=== PATIENT | female | born 1975 ===

== ENCOUNTER 2019-01-11 07:34 | Day surgery (SDC) | payer SELFPAY ==
[~2019-01-11] VITALS: Ht 157.5 cm; Wt 79.4 kg
[2019-01-11] VITALS (12 sets, daily range): BP systolic 105–122; BP diastolic 44–75
[~2019-01-11 07:34] MED LIST: CEPH500C PO; CITA40TA19 PO; FERR-57 PO; GBPN100C PO; PREN1TAB39 PO
--- OUTSIDE RECORDS SUMMARY | 2019-01-11 07:38 | XMS REPORT ---
Author Author Migration, Doctor Organization [facility] Address Unknown Phone Unavailable Care Team Providers Care Secretary Office Clerk Name Role Phone Migration, Doctor Unavailable Unavailable PROBLEMS Type Condition ICD9-CM Code AGU93-RA Code Onset Dates Condition Status SNOMED Code Problem Suicidal behavior without attempted self-injury R46.89 Active 727453177 Problem Severe episode of recurrent major depressive disorder, without psychotic features F33.2 Active 66238065 Problem Other general counseling and advice for contraceptive management V25.09 Active 138882556 Problem Depressive disorder, not elsewhere classified 311 Active 66060925 Problem Generalized anxiety disorder F41.1 Active 88448642 Problem Major depressive disorder, recurrent, moderate F33.1 Active 23065681 ALLERGIES No Information ENCOUNTERS Encounter Location Date Diagnosis [place] [id number] [place] [address] Mar, Severe episode of recurrent major depressive disorder, without psychotic features F33.2 [place] [id number] [place] [address] Feb, Severe episode of recurrent major depressive disorder, without psychotic features F33.2 [facility] [id number] [place] [address] Feb, [place] [id number] [place] [address] Feb, [facility] [id number] [place] [address] Feb, Major depressive disorder, recurrent, moderate F33.1 and Generalized anxiety disorder F41.1 [facility] [id number] [place] [address] Feb, Severe episode of recurrent major depressive disorder, without psychotic features F33.2 [place] [id number] [place] [address] Feb, Major depressive disorder, recurrent, moderate F33.1 and Generalized anxiety disorder F41.1 [facility] [id number] [place] [address] 14 Oct, 2014 [facility] [id number] [place] [address] 13 Oct, 2014 [facility] [id number] [place] [address] 06 Jun, 2012 [facility] [id number] [place] [address] Jun, [facility] [id number] [place] [address] May, [facility] [id number] [place] [address] May, [facility] [id number] [place] [address] May, [facility] [id number] [place] [address] May, [facility] [id number] [place] [address] May, [facility] [id number] [place] [address] May, [facility] [id number] [place] [address] May, [facility] [address] [place] [address] Apr, [facility] [id number] [place] [address] 17 Apr, 2011 [facility] [id number] [place] [address] 13 Apr, 2011 [facility] [id number] [place] [address] Apr, [facility] [id number] [address] 12 Apr, 2011 [facility] [address] [address] Mar, [facility] [address] [address] 17 Feb, 2011 [facility] [address] [address] Feb, [facility] [address] [address] Jan, [facility] [address] [address] November, [facility] [address] [address] Oct, [facility] [address] [address] Sep, [facility] [id number] [address] Aug, [facility] [id number] [address] 14 Jul, 2009 IMMUNIZATIONS No Known Immunizations SOCIAL HISTORY Never Assessed REASON FOR VISIT [facility] [place]AN OF CARE VITAL SIGNS MEDICATIONS No Known Medications RESULTS No Results PROCEDURES No Known procedures INSTRUCTIONS MEDICATIONS ADMINISTERED No Known Medications MEDICAL (GENERAL) HISTORY Type Description Date Surgical History section x3
--- OUTSIDE RECORDS SUMMARY | 2019-01-11 07:39 | XMS REPORT ---
Author Author VANESSA SÁNCHEZ Organization [facility] Address [address] [place] [address] Care Team Providers Care Demurrage Man Name Role Phone VANESSA SÁNCHEZ Unavailable PROBLEMS Type Condition ICD9-CM Code TUK21-SE Code Onset Dates Condition Status SNOMED Code Problem Severe episode of recurrent major depressive disorder, without psychotic features F33.2 Active 76524543 Problem Suicidal behavior without attempted self-injury R46.89 Active 994581120 Problem Depressive disorder, not elsewhere classified 311 Active 43844884 Problem Other general counseling and advice for contraceptive management V25.09 Active 415458261 Problem Major depressive disorder, recurrent, moderate F33.1 Active 81902121 Problem Generalized anxiety disorder F41.1 Active 64202483 ALLERGIES No Information ENCOUNTERS Encounter Location Date Diagnosis [place] [id number] [place] [address] Apr, [facility] [id number] [place] [address] Mar, Severe episode of recurrent major depressive disorder, without psychotic features F33.2 [facility] [address] [place] [address] Feb, Severe episode of recurrent major depressive disorder, without psychotic features F33.2 [facility] [address] [place] [address] Feb, [facility] [id number] [place] [address] Feb, [facility] [id number] [place] [address] Feb, Major depressive disorder, recurrent, moderate F33.1 and Generalized anxiety disorder F41.1 [facility] [id number] [place] [address] Feb, Severe episode of recurrent major depressive disorder, without psychotic features F33.2 [facility] [id number] [place] [address] Feb, Major depressive disorder, recurrent, moderate F33.1 and Generalized anxiety disorder F41.1 [facility] [id number] [place] [address] 14 Oct, 2014 [facility] [id number] [place] [address] Oct, [facility] [id number] [place] [address] Jun, [facility] [id number] [place] [address] Jun, [facility] [id number] [place] [address] May, [facility] [id number] [place] [address] May, [facility] [id number] [place] [address] May, [facility] [id number] [place] [address] May, [facility] [id number] [place] [address] May, [facility] [address] [place] [address] May, [facility] [id number] [place] [address] May, [facility] [id number] [place] [address] Apr, [facility] [id number] [place] [address] Apr, [facility] [id number] [address] 13 Apr, 2011 [facility] [address] [facility] [id number] [address] Apr, [facility] [address] [facility] [id number], [place] [address] Apr, [facility] [address] [facility] [id number], [place] [address] Mar, [facility] [address] [facility] [id number] [address] Feb, [facility] [address], [place] [address] Feb, [facility] [address], [place] [address] Jan, [facility] [address], [place] [address] November, [facility] [address], [place] [address] Oct, [facility] [id number] [address] Sep, [facility] [id number] [address] Aug, [facility] [id number] [address] Jul, IMMUNIZATIONS No Known Immunizations SOCIAL HISTORY Never Assessed REASON FOR VISIT crisis PLAN OF CARE Activity Details Follow Up 2 - 3 Days Reason: VITAL SIGNS MEDICATIONS Unknown Medications RESULTS No Results PROCEDURES Procedure Date Ordered Result Body Site Psych diagnostic evaluation, new patient Feb 16, 2018 INSTRUCTIONS MEDICATIONS ADMINISTERED No Known Medications MEDICAL (GENERAL) HISTORY Type Description Date Surgical History section x3
--- OUTSIDE RECORDS SUMMARY | 2019-01-11 07:39 | XMS REPORT ---
Author Author BECKI DANIEL Organization [facility] Address [address] [place] [address] Care Team Providers Care Paper Cone Machine Operator Name Role Phone KATHRYNDANIEL AGUIRRE Unavailable PROBLEMS Type Condition ICD9-CM Code ABG02-XO Code Onset Dates Condition Status SNOMED Code Problem Severe episode of recurrent major depressive disorder, without psychotic features F33.2 Active 33671362 Problem Suicidal behavior without attempted self-injury R46.89 Active 167024714 Problem Depressive disorder, not elsewhere classified 311 Active 27675753 Problem Other general counseling and advice for contraceptive management V25.09 Active 572546902 Problem Major depressive disorder, recurrent, moderate F33.1 Active 87943235 Problem Generalized anxiety disorder F41.1 Active 35323244 ALLERGIES No Information ENCOUNTERS Encounter Location Date Diagnosis [facility] [id number] [place] [address] Apr, [facility] [id number] [place] [address] Mar, Severe episode of recurrent major depressive disorder, without psychotic features F33.2 [facility] [id number] [place] [address] Feb, Severe episode of recurrent major depressive disorder, without psychotic features F33.2 [facility] [id number] [place] [address] Feb, [facility] [id number] [place] [address] Feb, [facility] [id number] [place] [address] Feb, Major depressive disorder, recurrent, moderate F33.1 and Generalized anxiety disorder F41.1 [facility] [address] [place] [address] Feb, Severe episode of recurrent major depressive disorder, without psychotic features F33.2 [facility] [id number] [place] [address] Feb, Major depressive disorder, recurrent, moderate F33.1 and Generalized anxiety disorder F41.1 [facility] [id number] [place] [address] 14 Oct, 2014 [facility] [id number] [place] [address] Oct, [facility] [id number] [place] [address] Jun, [facility] [id number] [place] [address] Jun, [facility] [id number] [place] [address] May, [facility] [id number] [place] [address] May, [facility] [id number] [place] [address] May, [facility] [address] [address] May, [facility] [id number] [place] [address] May, [facility] [address] [address] May, [facility] [id number] [place] [address] May, [facility] [id number] [address] Apr, [facility] [id number] [place] [address] Apr, [facility] [address] [facility] [id number] [address] Apr, [facility] [address] [facility] [id number] [place] [address] Apr, [facility] [address] [facility] [id number] [place] [address] Apr, [facility] [address] [facility] [id number] [place] [address] Mar, [facility] [address] [id number] [place] [address] Feb, [facility] [address] [facility] [id number] [place] [address] Feb, [facility] [address] [id number] [address] Jan, [facility] [address] [id number] [address] November, [facility] [address] [facility] [id number] [place] [address] Oct, [facility] [address] [id number] [address] Sep, [facility] [address] [address] Aug, [facility] [address] [id number] [address] Jul, IMMUNIZATIONS No Known Immunizations SOCIAL HISTORY Never Assessed REASON FOR VISIT trazodone refill PLAN OF CARE VITAL SIGNS MEDICATIONS Medication Instructions Dosage Frequency Start Date End Date Duration Status Trazodone HCl 50 MG Orally Once a day 1 tablet at bedtime as needed 24h Feb, 14 days Active RESULTS No Results PROCEDURES No Known procedures INSTRUCTIONS MEDICATIONS ADMINISTERED No Known Medications MEDICAL (GENERAL) HISTORY Type Description Date Surgical History section x3
--- OUTSIDE RECORDS SUMMARY | 2019-01-11 07:39 | XMS REPORT ---
Author Author BECKI DANIEL Organization [facility] Address [address] [place] [address] Care Team Providers Care Infantry Officer Name Role Phone KATHRYNDANIEL AGUIRRE Unavailable PROBLEMS Type Condition ICD9-CM Code YTV70-ZU Code Onset Dates Condition Status SNOMED Code Problem Severe episode of recurrent major depressive disorder, without psychotic features F33.2 Active 17716678 Problem Suicidal behavior without attempted self-injury R46.89 Active 795923030 Problem Depressive disorder, not elsewhere classified 311 Active 35210639 Problem Other general counseling and advice for contraceptive management V25.09 Active 677448456 Problem Major depressive disorder, recurrent, moderate F33.1 Active 98944082 Problem Generalized anxiety disorder F41.1 Active 59175942 ALLERGIES No Information ENCOUNTERS Encounter Location Date Diagnosis [facility] [id number] [place] [address] Apr, [facility] [id number] [place] [address] Mar, Severe episode of recurrent major depressive disorder, without psychotic features F33.2 [facility] [id number] [place] [address] Feb, Severe episode of recurrent major depressive disorder, without psychotic features F33.2 [facility] [id number] [place] [address] Feb, [facility] [id number] [place] [address] Feb, [facility] [id number] [place] [address] Feb, Major depressive disorder, recurrent, moderate F33.1 and Generalized anxiety disorder F41.1 [facility] [id number] [address] Feb, Severe episode of recurrent major depressive disorder, without psychotic features F33.2 [facility] [id number] [place] [address] Feb, Major depressive disorder, recurrent, moderate F33.1 and Generalized anxiety disorder F41.1 [facility] [id number] [place] [address] 14 Oct, 2014 [facility] [id number] [place] [address] Oct, [facility] [id number] [place] [address] Jun, [facility] [id number] [place] [address] Jun, [facility] [id number] [place] [address] May, [facility] [id number] [place] [address] May, [facility] [id number] [place] [address] May, [facility] [address] [address] May, [facility] [id number] [place] [address] May, [facility] [address] [address] May, [facility] [id number] [place] [address] May, [facility] [id number] [address] Apr, [facility] [id number] [place] [address] Apr, [facility] [address] [address] Apr, [facility] [id number], [place] [address] Apr, [facility] [address] [address] Apr, [facility] [id number] [place] [address] Mar, [facility] [address] [address] Feb, [facility] [id number] [place] [address] Feb, [facility] [address] [address] Jan, [facility] [id number] [place] [address] November, [facility] [address] [address] Oct, [facility] [id number], [place] [address] Sep, [facility] [address], [place] [address] Aug, [facility] [id number] [address] Jul, IMMUNIZATIONS No Known Immunizations SOCIAL HISTORY Never Assessed REASON FOR VISIT BH f/u, severe headaches, wasn't able to wake up, confused- AB/MA PLAN OF CARE Activity Details Follow Up 2 Months Reason: VITAL SIGNS Height 62 in 2018-03-21 Weight 168 lbs 2018-03-21 Heart Rate 51 bpm 2018-03-21 Respiratory Rate 20 2018-03-21 BMI 30.72 kg/m2 2018-03-21 Blood pressure systolic 130 mmHg 2018-03-21 Blood pressure diastolic 60 mmHg 2018-03-21 MEDICATIONS Medication Instructions Dosage Frequency Start Date End Date Duration Status Trazodone HCl 50 MG Orally Once a day 1 tablet at bedtime as needed 24h Feb, 30 days Active Celexa 40 MG Orally Once a day 1 tablet 24h Feb, 30 days Active RESULTS No Results PROCEDURES No Known procedures INSTRUCTIONS MEDICATIONS ADMINISTERED No Known Medications MEDICAL (GENERAL) HISTORY Type Description Date Surgical History section x3
--- OUTSIDE RECORDS SUMMARY | 2019-01-11 07:39 | XMS REPORT ---
Author Author BECKI DANIEL Organization [facility] Address [address] [place] [address] Care Team Providers Care It Systems Analyst Name Role Phone KATHRYNDANIEL AGUIRRE Unavailable PROBLEMS Type Condition ICD9-CM Code [id number] Code Onset Dates Condition Status SNOMED Code Problem Severe episode of recurrent major depressive disorder, without psychotic features F33.2 Active 31727484 Problem Suicidal behavior without attempted self-injury R46.89 Active 453589663 Problem Depressive disorder, not elsewhere classified 311 Active 97968825 Problem Other general counseling and advice for contraceptive management V25.09 Active 494378414 Problem Major depressive disorder, recurrent, moderate F33.1 Active 06398652 Problem Generalized anxiety disorder F41.1 Active 81086452 ALLERGIES No Known Allergies ENCOUNTERS Encounter Location Date Diagnosis [facility] [id number] [place] [address] Apr, [facility] [address] [address] Mar, Severe episode of recurrent major depressive disorder, without psychotic features F33.2 [facility] [id number] [place] [address] Feb, Severe episode of recurrent major depressive disorder, without psychotic features F33.2 [facility] [address] [place] [address] Feb, [facility] [id number] [place] [address] Feb, [facility] [id number] [place] [address] Feb, Major depressive disorder, recurrent, moderate F33.1 and Generalized anxiety disorder F41.1 [facility] [address] [place] [address] Feb, Severe episode of recurrent major depressive disorder, without psychotic features F33.2 [facility] [id number] [place] [address], [place] [address] Feb, Major depressive disorder, recurrent, moderate F33.1 and Generalized anxiety disorder F41.1 [facility] [id number] [place] [address] 14 Oct, 2014 [facility] [id number] [place] [address] Oct, [facility] [id number] [place] [address] Jun, [facility] [id number] [place] [address] Jun, [facility] [id number] [place] [address] May, [facility] [id number] [place] [address] May, [facility] [id number] [place] [address] May, [facility] [address] [place] [address] May, [facility] [id number] [place] [address] May, [facility] [id number] [address] May, [facility] [id number] [place] [address] May, [facility] [id number] [address] Apr, [facility] [address] [place] [address] Apr, [facility] [id number] [address] Apr, [facility] [id number] [address] Apr, [facility] [id number] [address] Apr, [facility] [id number] [address] Mar, [facility] [id number] [address] Feb, [facility] [id number] [address] Feb, [facility] [id number] [address] Jan, [facility] [id number] [address] November, [facility] [id number] [address] Oct, [facility] [id number] [address] Sep, [facility] [id number] [address] Aug, [facility] [id number] [address] Jul, IMMUNIZATIONS No Known Immunizations SOCIAL HISTORY Never Assessed REASON FOR VISIT f/u PLAN OF CARE Activity Details Follow Up 4 Weeks Reason: VITAL SIGNS Height 62 in 2018-02-21 Weight 166.6 lbs 2018-02-21 Heart Rate 72 bpm 2018-02-21 Respiratory Rate 20 2018-02-21 BMI 30.47 kg/m2 2018-02-21 Blood pressure systolic 98 mmHg 2018-02-21 Blood pressure diastolic 56 mmHg 2018-02-21 MEDICATIONS Medication Instructions Dosage Frequency Start Date End Date Duration Status Celexa 20 MG Orally Once a day 1 tablet 24h Feb, Active Trazodone HCl 50 MG Orally Once a day 1 tablet at bedtime as needed 24h Feb, 30 days Active RESULTS No Results PROCEDURES No Known procedures INSTRUCTIONS MEDICATIONS ADMINISTERED No Known Medications MEDICAL (GENERAL) HISTORY Type Description Date Surgical History section x3
--- OUTSIDE RECORDS SUMMARY | 2019-01-11 07:39 | XMS REPORT ---
Author Author BECKI DANIEL Organization [facility] Address [address] [place] [address] Care Team Providers Care Campaign Associate Name Role Phone KATHRYNDANIEL AGUIRRE Unavailable PROBLEMS Type Condition ICD9-CM Code PNC30-YH Code Onset Dates Condition Status SNOMED Code Problem Severe episode of recurrent major depressive disorder, without psychotic features F33.2 Active 56957592 Problem Suicidal behavior without attempted self-injury R46.89 Active 256847333 Problem Depressive disorder, not elsewhere classified 311 Active 08681630 Problem Other general counseling and advice for contraceptive management V25.09 Active 774755543 Problem Major depressive disorder, recurrent, moderate F33.1 Active 72364871 Problem Generalized anxiety disorder F41.1 Active 60292561 ALLERGIES No Information ENCOUNTERS Encounter Location Date Diagnosis [facility] [id number] [place] [address] Apr, [facility] [id number] [place] [address] Mar, Severe episode of recurrent major depressive disorder, without psychotic features F33.2 [facility] [id number] [place] [address] Feb, Severe episode of recurrent major depressive disorder, without psychotic features F33.2 [facility] [address] [place] [address] Feb, [facility] [id number] [place] [address] Feb, [facility] [id number] [place] [address] Feb, Major depressive disorder, recurrent, moderate F33.1 and Generalized anxiety disorder F41.1 [facility] [address] [place] [address] Feb, Severe episode of recurrent major depressive disorder, without psychotic features F33.2 [facility] [id number] [place] [address] Feb, Major depressive disorder, recurrent, moderate F33.1 and Generalized anxiety disorder F41.1 [facility] [id number] [place] [address] 14 Oct, 2014 [facility] [id number] [place] [address] Oct, [facility] [id number] [place] [address] Jun, [facility] [id number] [place] [address] Jun, [facility] [id number] [place] [address] May, [facility] [id number] [place] [address] May, [facility] [id number] [place] [address] May, [facility] [address] [address] May, [facility] [id number] [place] [address] May, [facility] [address] [address] May, [facility] [id number] [place] [address] May, [facility] [id number] [address] Apr, [facility] [id number] [place] [address] Apr, [facility] [address] [id number] [address] Apr, [facility] [address] [facility] [id number] [address] Apr, [facility] [address] [facility] [id number] [place] [address] Apr, [facility] [address] [facility] [id number] [place] [address] Mar, [facility] [address] [id number] [address] Feb, [facility] [address] [facility] [id number] [address] Feb, [facility] [address] [facility] [id number] [place] [address] Jan, [facility] [address] [facility] [id number] [place] [address] November, [facility] [address] [facility] [id number] [place] [address] Oct, [facility] [address] [facility] [id number] [place] [address] Sep, [facility] [id number] [address] Aug, [facility] [id number] [address] Jul, IMMUNIZATIONS No Known Immunizations SOCIAL HISTORY Never Assessed REASON FOR VISIT celexa refill PLAN OF CARE VITAL SIGNS MEDICATIONS Medication Instructions Dosage Frequency Start Date End Date Duration Status Celexa 20 MG Orally Once a day 1 tablet 24h Feb, 30 days Active RESULTS No Results PROCEDURES No Known procedures INSTRUCTIONS MEDICATIONS ADMINISTERED No Known Medications MEDICAL (GENERAL) HISTORY Type Description Date Surgical History section x3
--- OUTSIDE RECORDS SUMMARY | 2019-01-11 07:39 | XMS REPORT ---
Author Author VANESSA SÁNCHEZ Organization [facility] Address [address] [place] [address] Care Team Providers Care Linux Unix Administrator Name Role Phone VANESSA SÁNCHEZ Unavailable PROBLEMS Type Condition ICD9-CM Code QKS84-ID Code Onset Dates Condition Status SNOMED Code Problem Severe episode of recurrent major depressive disorder, without psychotic features F33.2 Active 09955272 Problem Suicidal behavior without attempted self-injury R46.89 Active 642725670 Problem Depressive disorder, not elsewhere classified 311 Active 22499984 Problem Other general counseling and advice for contraceptive management V25.09 Active 666355070 Problem Major depressive disorder, recurrent, moderate F33.1 Active 86321129 Problem Generalized anxiety disorder F41.1 Active 96071122 ALLERGIES No Information ENCOUNTERS Encounter Location Date Diagnosis [id number] [place] [address] Apr, [facility] [id number] [place] [address] Mar, Severe episode of recurrent major depressive disorder, without psychotic features F33.2 [facility] [address] [place] [address] Feb, Severe episode of recurrent major depressive disorder, without psychotic features F33.2 [facility] [address] [place] [address] Feb, [facility] [id number] [place] [address] Feb, [facility] [id number] [place] [address] Feb, Major depressive disorder, recurrent, moderate F33.1 and Generalized anxiety disorder F41.1 [facility] [id number] [place] [address] Feb, Severe episode of recurrent major depressive disorder, without psychotic features F33.2 [facility] [id number] [place] [address] Feb, Major depressive disorder, recurrent, moderate F33.1 and Generalized anxiety disorder F41.1 [facility] [id number] [place] [address] 14 Oct, 2014 [facility] [id number] [place] [address] Oct, [facility] [id number] [place] [address] Jun, [facility] [id number] [place] [address] Jun, [facility] [id number] [place] [address] May, [facility] [id number] [place] [address] May, [facility] [id number] [place] [address] May, [facility] [id number] [place] [address] May, [facility] [id number] [place] [address] May, [facility] [id number] [place] [address] May, [facility] [id number] [place] [address] May, [facility] [id number] [place] [address] Apr, [facility] [id number] [place] [address] Apr, [facility] [address] [facility] [id number], [place] [address] 13 Apr, 2011 [facility] [address] [facility] [id number], [place] [address] Apr, [facility] [address] [facility] [id number], [place] [address] Apr, [facility] [address] [facility] [id number], [place] [address] Mar, [facility] [address] [facility] [id number], [place] [address] Feb, [facility] [address] [facility] [id number], [place] [address] Feb, [facility] [address] [address] Jan, [facility] [address] [address] November, [facility] [id number] [address] Oct, [facility] [id number] [address] Sep, [facility] [id number] [address] Aug, [facility] [id number] [address] Jul, IMMUNIZATIONS No Known Immunizations SOCIAL HISTORY Never Assessed REASON FOR VISIT f/u PLAN OF CARE Activity Details Follow Up Next available Reason: VITAL SIGNS MEDICATIONS Unknown Medications RESULTS No Results PROCEDURES Procedure Date Ordered Result Body Site Psychotherapy, patient &/family, 30 minutes, new patient Feb 17, 2018 INSTRUCTIONS MEDICATIONS ADMINISTERED No Known Medications MEDICAL (GENERAL) HISTORY Type Description Date Surgical History section x3
--- OUTSIDE RECORDS SUMMARY | 2019-01-11 07:39 | XMS REPORT | Continuity of Care Document ---
Author Organization Unknown Address Unknown Allergies There is no data. Medications There is no data. Problems Date Dx Coded Attending Type Code Diagnosis Diagnosed By 07/31/2008 626.6 Metrorrhagia 07/31/2008 V72.31 Pelvic Exam (internal) 07/31/2008 V74.5 Visit For: Screening Exam Bact/spirochetal Venereal Disease 07/31/2008 SCOUT CADE DO 626.6 Metrorrhagia 07/31/2008 SCOUT CADE DO V72.31 Pelvic Exam (internal) 07/31/2008 SCOUT CADE DO V74.5 Visit For: Screening Exam Bact/spirochetal Venereal Disease 08/11/2010 654.20 Previous 08/11/2010 V22.1 , Normal Other 08/11/2010 SCOUT C[facility] DO 654.20 Previous 08/11/2010 SCOUT CADE DO V22.1 , Normal Other 01/27/2011 530.81 GERD 01/27/2011 SCOUT CADE DO 530.81 GERD 02/15/2011 765.28 35-36 Completed Weeks Of Gestation 02/15/2011 SCOUT CADE DO 765.28 35-36 Completed Weeks Of Gestation 02/24/2011 791.5 Glycosuria 02/24/2011 SCOUT CADE DO 791.5 Glycosuria 03/29/2011 648.40 DEPRESSION 03/29/2011 V45.89 Other Postsurgical Status 03/29/2011 SCOUT CADE DO 648.40 DEPRESSION 03/29/2011 [facility] DO V45.89 Other Postsurgical Status 04/21/2011 V24.2 Visit For: Exam 04/21/2011 V25.01 Oral Contraceptives 04/21/2011 SCOUT CADE DO V24.2 Visit For: Exam 04/21/2011 SCOUT C[facility] DO V25.01 Oral Contraceptives 05/24/2012 311 DEPRESSIVE DISORDER NOS 05/24/2012 V25.09 CONTRACEPTIVE COUNSELING - GENERAL 05/24/2012 [facility]OUT C[facility] DO 311 DEPRESSIVE DISORDER NOS 05/24/2012 [facility] DO V25.09 CONTRACEPTIVE COUNSELING - GENERAL Procedures Code Description [place] [address] THERAPUTIC INJ SQ/IM 05/24/2012 J1055 DEPO-PROVERA INJ 150 MG 05/24/2012 62574 URINE TEST (IN-HOUSE) 05/24/2012 Results There is no data. Encounters ACCT No. Visit Date/Time Discharge Status Pt. Type Provider Facility Loc./Unit Complaint [id number] 05/24/2012 11:30:00 05/24/2012 23:59:59 CLS Outpatient [id number] 05/17/2011 09:50:00 05/17/2011 23:59:59 [place] [id number] 02/21/2018 18:20:00 02/21/2018 23:59:59 CLS Outpatient PORTER MERRILL APRN [facility]
--- OUTSIDE RECORDS SUMMARY | 2019-01-11 07:39 | XMS REPORT ---
Author Author Migration, Doctor Organization [facility] Address Unknown Phone Unavailable Care Team Providers Care Needle Punch Operator Name Role Phone Migration, Doctor Unavailable Unavailable PROBLEMS Type Condition ICD9-CM Code COK59-QG Code Onset Dates Condition Status SNOMED Code Problem Suicidal behavior without attempted self-injury R46.89 Active 301103757 Problem Severe episode of recurrent major depressive disorder, without psychotic features F33.2 Active 12290639 Problem Other general counseling and advice for contraceptive management V25.09 Active 155099258 Problem Depressive disorder, not elsewhere classified 311 Active 45300510 Problem Generalized anxiety disorder F41.1 Active 78494324 Problem Major depressive disorder, recurrent, moderate F33.1 Active [id number] ALLERGIES No Information ENCOUNTERS Encounter Location Date Diagnosis [place] [id number] [place] [phone] Mar, Severe episode of recurrent major depressive disorder, without psychotic features F33.2 [place] [id number] [place] [address] Feb, Severe episode of recurrent major depressive disorder, without psychotic features F33.2 [facility] [id number] [place] [address] Feb, [place] [id number] [place] [address] Feb, [facility] [id number] [place] [address] Feb, Major depressive disorder, recurrent, moderate F33.1 and Generalized anxiety disorder F41.1 [facility] [id number] [place] [address] Feb, Severe episode of recurrent major depressive disorder, without psychotic features F33.2 [place] [id number] [place] [address] Feb, Major depressive disorder, recurrent, moderate F33.1 and Generalized anxiety disorder F41.1 [facility] [id number] [place] [address] 14 Oct, 2014 [facility] [id number] [place] [phone] 13 Oct, 2014 [facility] [id number] [place] [phone] 06 Jun, 2012 [facility] [id number] [place] [phone] Jun, [facility] [id number] [place] [address] May, [facility] [id number] [place] [address] May, [facility] [id number] [place] [address] May, [facility] [id number] [place] [phone] May, [facility] [id number] [place] [address] May, [facility] [id number] [place] [phone] May, [facility] [id number] [place] [phone] May, [facility] [id number] [place] [address] Apr, [facility] [id number] [place] [address] 17 Apr, 2011 [facility] [id number] [place] [phone] 13 Apr, 2011 [facility] [id number] [place] [address] Apr, [facility] [id number] [address] 12 Apr, 2011 [facility] [id number] [address] Mar, [facility] [id number] [address] Feb, [facility] [id number] [address] Feb, [facility] [id number] [address] Jan, [facility] [id number] [address] November, [facility] [id number] [address] Oct, [facility] [id number] [address] Sep, [facility] [id number] [address] Aug, [facility] [id number] [address] Jul, IMMUNIZATIONS No Known Immunizations SOCIAL HISTORY Never Assessed REASON FOR VISIT EMR-[facility] [place] PLAN OF CARE VITAL SIGNS MEDICATIONS Medication Instructions Dosage Frequency Start Date End Date Duration Status Celexa 40 mg 1 tablet by Oral route 1 time per daySTART: half tab daily for 2 weeks, then as above. May, Active RESULTS No Results PROCEDURES No Known procedures INSTRUCTIONS MEDICATIONS ADMINISTERED No Known Medications MEDICAL (GENERAL) HISTORY Type Description Date Surgical History section x3
--- OUTSIDE RECORDS SUMMARY | 2019-01-11 07:39 | XMS REPORT ---
Author Author BECKI DANIEL Organization [facility] Address [address] [place] [address] Care Team Providers Care Pharmacist Manager Name Role Phone KATHRYNDANIEL AGUIRRE Unavailable PROBLEMS Type Condition ICD9-CM Code CNH49-VI Code Onset Dates Condition Status SNOMED Code Problem Severe episode of recurrent major depressive disorder, without psychotic features F33.2 Active 87050024 Problem Suicidal behavior without attempted self-injury R46.89 Active 704196378 Problem Depressive disorder, not elsewhere classified 311 Active 04356020 Problem Other general counseling and advice for contraceptive management V25.09 Active 170796934 Problem Major depressive disorder, recurrent, moderate F33.1 Active 10573529 Problem Generalized anxiety disorder F41.1 Active 71781177 ALLERGIES No Known Allergies ENCOUNTERS Encounter Location Date Diagnosis [facility] [id number] [place] [address] Apr, [facility] [address] [address] Mar, Severe episode of recurrent major depressive disorder, without psychotic features F33.2 [facility] [id number] [place] [address] Feb, Severe episode of recurrent major depressive disorder, without psychotic features F33.2 [facility] [address] [place] [address] Feb, [facility] [id number] [place] [address] Feb, [facility] [id number] [place] [address] Feb, Major depressive disorder, recurrent, moderate F33.1 and Generalized anxiety disorder F41.1 [facility] [address] [place] [address] Feb, Severe episode of recurrent major depressive disorder, without psychotic features F33.2 [facility] [id number] [place] [address], [place] [address] Feb, Major depressive disorder, recurrent, moderate F33.1 and Generalized anxiety disorder F41.1 [facility] [id number] [place] [address] 14 Oct, 2014 [facility] [id number] [place] [address] Oct, [facility] [id number] [place] [address] Jun, [facility] [id number] [place] [address] Jun, [facility] [id number] [place] [address] May, [facility] [id number] [place] [address] May, [facility] [id number] [place] [address] May, [facility] [id number] [place] [address] May, [facility] [id number] [place] [address] May, [facility] [address] [address] May, [facility] [id number] [place] [address] May, [facility] [id number] [address] Apr, [facility] [id number] [place] [address] Apr, [facility] [id number] [address] Apr, [facility] [address] [address] Apr, [facility] [id number] [address] Apr, [facility] [address] [place] [address] Mar, [facility] [address] [address] Feb, [facility] [address] [address] Feb, [facility] [address] [address] Jan, [facility] [id number] [place] [address] November, [facility] [id number] [address] Oct, [facility] [address] [address] Sep, [facility] [address] [address] Aug, [facility] [address] [address] Jul, IMMUNIZATIONS No Known Immunizations SOCIAL HISTORY Never Assessed REASON FOR VISIT BH intake - crisis----Stephanie PLAN OF CARE Activity Details Follow Up 2 Weeks Reason: VITAL SIGNS Height 62 in 2018-02-16 Weight 165 lbs 2018-02-16 Heart Rate 70 bpm 2018-02-16 Respiratory Rate 20 2018-02-16 BMI 30.18 kg/m2 2018-02-16 Blood pressure systolic 102 mmHg 2018-02-16 Blood pressure diastolic 60 mmHg 2018-02-16 MEDICATIONS Medication Instructions Dosage Frequency Start Date End Date Duration Status Trazodone HCl 50 MG Orally Once a day 1 tablet at bedtime as needed 24h Feb, 7 days Active Celexa 20 MG Orally Once a day 0.5 tablet daily for one week then full tab daily 24h Feb, 15 days Active RESULTS No Results PROCEDURES No Known procedures INSTRUCTIONS MEDICATIONS ADMINISTERED No Known Medications MEDICAL (GENERAL) HISTORY Type Description Date Surgical History section x3
[2019-01-11] MEDS ORDERED: KETOROLAC 30 MG/ML VIAL IVP STA (07:53)
[2019-01-11] MEDS ORDERED: NS IV 1000 ML 1,000 ML IV STA (07:53)
[2019-01-11] MEDS ORDERED: morphine INJ 10 MG/ML 1ML (SYR OR VIAL) IVP ONE (08:00)
[2019-01-11] MEDS ORDERED: ONDANSETRON 4 MG/2 ML (SDV) Z0FRAN IVP ONE ×2 (08:00→10:00)
[2019-01-11 08:08] LABS: BASOPHILS % (AUTO) 1 % (0-10); EOSINOPHILS # (AUTO) 0.2 10^3/uL (0.0-0.3); EOSINOPHILS % (AUTO) 3 % (0-10); HEMATOCRIT 29 % (35-52); HEMOGLOBIN 8.6 G/DL (11.5-16.0); LYMPHOCYTES # (AUTO) 1.4 X 10^3 (1.0-4.0); LYMPHOCYTES % (AUTO) 30 % (12-44); MEAN CORPUSCULAR HEMOGLOBIN 19 PG (25-34); MEAN CORPUSCULAR HGB CONC 30 G/DL (32-36); MEAN CORPUSCULAR VOLUME 65 FL (80-99); MEAN PLATELET VOLUME 11.3 FL (7.4-10.4); MONOCYTES # (AUTO) 0.3 X 10^3 (0.0-1.0); MONOCYTES % (AUTO) 7 % (0-12); NEUTROPHILS # (AUTO) 2.7 X 10^3 (1.8-7.8); NEUTROPHILS % (AUTO) 59 % (42-75); PLATELET COUNT 330 10^3/uL (130-400); RED CELL DISTRIBUTION WIDTH 18.1 % (10.0-14.5); WHITE BLOOD COUNT 4.6 10^3/uL (4.3-11.0)
--- NOTE | 2019-01-11 08:13 | ED Abdominal Pain ---
General Chief Complaint: Abdominal/GI Problems Stated Complaint: ABD/BACK PAIN;N/V Source of Information: Patient Exam Limitations: No Limitations (STEVE LU MEDICAL STUDENT) History of Present Illness Date Seen by Provider: Jan 11, 2019 Time Seen by Provider: 07:38 Initial Comments Pt presents to ED this morning c/o sharp abdominal pain and vomiting that started an hour ago. She notes that she has a two year history of bouts of pain just like this. She thinks this may be related to her history of gallstones. Pt rates her pain as a 10/10 and states that usually morphine helps relieve the pain. She also endorses right sided, low back pain that radiates into her leg, causing tingling and making it difficult to stand. Pt denies food trigger this morning and denies fever, diarrhea, constipation, or urinary urgency. Pt denies ever having surgical consultation regarding possible cholecystectomy. She sees [facility] for her healthcare. LMP was 01/01/19. Timing/Duration: 1 Hour Severity/Quality: Severe, Sharp Location: RUQ, RLQ Radiation: Groin Activities at Onset: None Modifying Factors: Improves With Analgesics (morphine) Associated Symptoms: Back Pain, Nausea/Vomiting (STEVE LU MEDICAL STUDENT) Radiation: Back Associated Symptoms: No Fever/Chills, No Shortness of Air (JEANCARLOS HERNANDEZ MD) Allergies and Home Medications Allergies Coded Allergies: No Known Drug Allergies (Verified , 03/27/07) Home Medications Citalopram Hydrobromide 40 Mg Tablet, 1 EACH PO DAILY, (Reported) Ferrous Sulfate 325 Mg Tablet, 325 MG PO DAILY Prescribed by: AMBROCIO GARCIA on 06/06/12 0245 Gabapentin 100 Mg Cap, 100 MG PO TID Prescribed by: AMBROCIO GARCIA on 06/06/12 0252 Vits W-Ca,Fe,Fa(<1MG) 1 Each Tablet, 1 EACH PO DAILY, (Reported) Patient Home Medication List Home Medication List Reviewed: Yes (STEVE LU STUDENT) Home Medication List Reviewed: Yes (JEANCARLOS HERNANDEZ MD) Review of Systems Review of Systems Constitutional: No chills, No fever EENTM: No Symptoms Reported Respiratory: No Symptoms Reported Cardiovascular: No Symptoms Reported Gastrointestinal: Abdominal Pain (right sided), Nausea, Vomiting Genitourinary: Denies Hematuria, Denies Pain, Denies Urgency Musculoskeletal: back pain (right sided low back) Skin: no symptoms reported Psychiatric/Neurological: Tingling (right leg) Endocrine: No Symptoms Reported Hematologic/Lymphatic: No Symptoms Reported (STEVE LU MEDICAL STUDENT) All Other Systems Reviewed Negative Unless Noted: Yes (JEANCARLOS HERNANDEZ MD) Past Vmmlogw-Ygrgbs-Cscuha Hx Past Med/Social Hx: Reviewed Nursing Past Med/Soc Hx (JEANCARLOS HERNANDEZ MD) Patient Social History Alcohol Use: Denies Use Recreational Drug Use: No Smoking Status: Never a Smoker (STEVE LU MEDICAL STUDENT) Past Medical History Surgeries: Yes Section (x3) Respiratory: No Cardiac: No Reproductive Disorders: No Genitourinary: No Gall Bladder Disease (gallstones) Musculoskeletal: No Endocrine: No Cancer: No Depression (STEVE LU STUDENT) Family Medical History Reviewed Nursing Family Hx (JEANCARLOS HERNANDEZ MD) No Pertinent Family Hx (JEANCARLOS HERNANDEZ MD) Physical Exam Vital Signs Vital Signs - First Documented 01/11/19 07:44 Temp 97.1 Pulse 69 Resp 16 B/P (MAP) 130/74 (92) Pulse Ox 100 O2 Delivery Room Air (JEANCARLOS HERNANDEZ MD) Vital Signs Capillary Refill : (STEVE LU MEDICAL STUDENT) Height/Weight/BMI Height: '" Weight: lbs. oz. kg; BMI Method:Stated General Appearance: severe distress HEENT: PERRL/EOMI, pharynx normal Neck: full range of motion, normal inspection Respiratory: lungs clear, normal breath sounds Cardiovascular: regular rate, rhythm, no murmur Peripheral Pulses: 2+ Radial Pulses (R), 2+ Radial Pulses (L) Gastrointestinal: normal bowel sounds, soft, tenderness (RUQ and RLQ) Extremities: non-tender, no pedal edema Back: no CVA tenderness, other (right SI joint tenderness) Neurologic/Psychiatric: no motor/sensory deficits, alert, oriented x 3 Skin: normal color, warm/dry (STEVE LU MEDICAL STUDENT) General Appearance: WD/WN, moderate distress Respiratory: lungs clear, normal breath sounds Cardiovascular: regular rate, rhythm, no murmur Gastrointestinal: soft, tenderness (RUQ and RLQ) Back: no CVA tenderness, no vertebral tenderness, other (right SI joint tenderness) (JEANCARLOS HERNANDEZ MD) Progress/Results/Core Measures Results/Orders Lab Results Laboratory Tests Test 01/11/19 07:52 01/11/19 09:42 Range/Units White Blood Count 4.6 4.3-11.0 10^3/uL Red Blood Count 4.46 4.35-5.85 10^6/uL Hemoglobin 8.6 L 11.5-16.0 G/DL Hematocrit 29 L 35-52 % Mean Corpuscular Volume 65 L 80-99 FL Mean Corpuscular Hemoglobin 19 L 25-34 PG Mean Corpuscular Hemoglobin Concent 30 L 32-36 G/DL Red Cell Distribution Width 18.1 H 10.0-14.5 % Platelet Count 330 130-400 10^3/uL Mean Platelet Volume 11.3 H 7.4-10.4 FL Neutrophils (%) (Auto) 59 42-75 % Lymphocytes (%) (Auto) 30 12-44 % Monocytes (%) (Auto) 7 0-12 % Eosinophils (%) (Auto) 3 0-10 % Basophils (%) (Auto) 1 0-10 % Neutrophils # (Auto) 2.7 1.8-7.8 X 10^3 Lymphocytes # (Auto) 1.4 1.0-4.0 X 10^3 Monocytes # (Auto) 0.3 0.0-1.0 X 10^3 Eosinophils # (Auto) 0.2 0.0-0.3 10^3/uL Basophils # (Auto) 0.0 0.0-0.1 10^3/uL Sodium Level 141 135-145 MMOL/L Potassium Level 3.3 L 3.6-5.0 MMOL/L Chloride Level 112 H 98-107 MMOL/L Carbon Dioxide Level 20 L 21-32 MMOL/L Anion Gap 9 5-14 MMOL/L Blood Urea Nitrogen 12 7-18 MG/DL Creatinine 0.79 0.60-1.30 MG/DL Estimat Glomerular Filtration Rate > 60 BUN/Creatinine Ratio 15 Glucose Level 113 H 70-105 MG/DL Calcium Level 8.9 8.5-10.1 MG/DL Corrected Calcium 8.8 8.5-10.1 MG/DL Total Bilirubin 0.4 0.1-1.0 MG/DL Aspartate Amino Transf (AST/SGOT) 17 5-34 U/L Alanine Aminotransferase (ALT/SGPT) 19 0-55 U/L Alkaline Phosphatase 73 40-136 U/L C-Reactive Protein High Sensitivity 0.06 0.00-0.50 MG/DL Total Protein 7.2 6.4-8.2 GM/DL Albumin 4.1 3.2-4.5 GM/DL Lipase 16 8-78 U/L Urine Color YELLOW Urine Clarity CLEAR Urine pH 6 5-9 Urine Specific [place] 1.020 1.016-1.022 Urine Protein 2+ H NEGATIVE Urine Glucose (UA) NEGATIVE NEGATIVE Urine Ketones 1+ H NEGATIVE Urine Nitrite NEGATIVE NEGATIVE Urine Bilirubin NEGATIVE NEGATIVE Urine Urobilinogen NORMAL NORMAL MG/DL Urine Leukocyte Esterase 2+ H NEGATIVE Urine RBC (Auto) 3+ H NEGATIVE Urine RBC 5-10 H /HPF Urine WBC 10-25 H /HPF Urine Squamous Epithelial Cells >50 H /HPF Urine Crystals NONE /LPF Urine Bacteria LARGE H /HPF Urine Casts NONE /LPF Urine Mucus MODERATE H /LPF Urine Culture Indicated YES (JEANCARLOS HERNANDEZ MD) My Orders Orders - JEANCARLOS HERNANDEZ MD Cbc With Automated Diff (01/11/19 07:53) Comprehensive Metabolic Panel (01/11/19 07:53) Hs C Reactive Protein (01/11/19 07:53) Lipase (01/11/19 07:53) Ua Culture If Indicated (01/11/19 07:53) Us Gallbladder [id number] (01/11/19 07:53) Ondansetron Injection (Zofran Injectio (01/11/19 08:00) Ns Iv 1000 Ml (Sodium Chloride 0.9%) (01/11/19 07:53) Ed Iv/Invasive Line Start (01/11/19 07:53) Ketorolac Injection (Toradol Injection) (01/11/19 07:53) Morphine Injection (Morphine Injection (01/11/19 08:00) Urine Bedside (01/11/19 07:59) Ondansetron Injection (Zofran Injectio (01/11/19 10:00) Fentanyl Injection (Sublimaze Injection (01/11/19 09:47) Ed Iv/Invasive Line Start (01/11/19 09:47) Lactated Ringers (Lr 1000 Ml Iv Solution (01/11/19 09:47) Urine Culture (01/11/19 09:42) (JEANCARLOS HERNANDEZ MD) Medications Given in ED Current Medications Medications Dose Ordered Sig/Anuja Route Start Time Stop Time Status Last Admin Dose Admin Lactated Ringer's 1,000 ml @ 0 mls/hr Q0M ONCE IV 01/11/19 09:47 01/11/19 09:55 DC 01/11/19 10:03 1,000 MLS/HR Morphine Sulfate 4 mg ONCE ONCE IVP 01/11/19 08:00 01/11/19 08:01 DC 01/11/19 08:17 4 MG Ondansetron HCl 4 mg ONCE ONCE IVP 01/11/19 08:00 01/11/19 08:01 DC 01/11/19 08:14 4 MG Ondansetron HCl 4 mg ONCE ONCE IVP 01/11/19 10:00 01/11/19 10:01 DC 01/11/19 10:00 4 MG (JEANCARLOS HERNANDEZ MD) Vital Signs/I&O 01/11/19 07:44 Temp 97.1 Pulse 69 Resp 16 B/P (MAP) 130/74 (92) Pulse Ox 100 O2 Delivery Room Air (JEANCARLOS HERNANDEZ MD) Progress Progress Note : Progress Note Seen and evaluated. The above except as indicated. I have directed the plan of care. Patient is here with right upper quadrant abdominal pain that is persisting and is associated with nausea and vomiting. Does have history of gallbladder disease. She is not follow-up with the surgeon as of yet. No current fevers. Physical exam did show right upper quadrant abdominal pain. She also has pain radiating lower on the right as well as to her back. Heart is regular in rate and rhythm without murmurs. Lungs are clear to auscultation bilateral. Plan is for IV, labs, UA, ultrasound, normal saline 1 L bolus, Zofran 4 mg IV and morphine 4 mg IV ordered. 1010: Patient did also receive fentanyl 50 g IV and repeat Zofran 4 mg IV for nausea and vomiting. Case discussed with Dr. Ge and he is now seen the patient in the emergency department. Monitor patient. 1025: Plan is to take patient to the OR. Patient agrees with plan. Case discussed with the patient by Dr. Ge via site interpreter line. Pending is currently somewhat improved but she is dizzy after the fentanyl. (JEANCARLOS HERNANDEZ MD) Diagnostic Imaging Diagonstic Imaging: Ultrasound Plain Films/CT/US/NM/MRI: abdomen (STEVE LU MEDICAL STUDENT) Comments [facility] [place] NAME: SALBADOR STEWART [facility] REC#: [id number] PT STATUS: REG ER : 1975 PHYSICIAN: JEANCARLOS HERNANDEZ MD ADMIT DATE: 01/11/19/ER Draft Date of Exam:01/11/19 US GALLBLADDER [id number] PROCEDURE: US Gallbladder. TECHNIQUE: Multiple real-time grayscale images were obtained over the right upper quadrant in various projections. INDICATION: Pain FINDINGS: There are gallstones present. The gallbladder wall not pathologically thickened. No pericholecystic fluid or edema. Mechanical Product Design Engineer reports a positive Macedo's sign. The intrahepatic biliary ducts nondilated. The common bile duct was 5 mm with no visualized stone. The right kidney shows mild prominence of the renal pelvis but no calyceal dilatation or fortino hydronephrosis. No visualized stone. IMPRESSION: Tender gallbladder with multiple gallstones. Prominent gallbladder measures just less than 10 cm in length by about 4 cm in width. Findings are equivocal for cholecystitis. If the clinical diagnosis is in doubt consider nuclear medicine hepatobiliary scanning to confirm or refute cystic duct patency. No bile duct dilatation. No ascites. Dictated on workstation # [id number] Dict: 01/11/19 0855 Trans: 01/11/19 0858 [facility] [id number] Interpreted by: JONES CARDONA Electronically signed by: (JEANCARLOS HERNANDEZ MD) Departure Communication (Admissions) Time/Spoke to Admitting Phy: 10:10 (JEANCARLOS HERNANDEZ MD) Impression Primary Impression: Cholecystitis, acute with cholelithiasis Qualified Codes: K80.00 - Calculus of gallbladder with acute cholecystitis without obstruction Disposition: ADMITTED INPATIENT Condition: Stable Admissions Decision to Admit Reason: Admit from ER (General) Decision to Admit/Date: Jan 11, 2019 Time/Decision to Admit Time: 10:10 (JEANCARLOS HERNANDEZ MD) Departure-Patient Inst. Referrals: GRETA MORA MD (PCP/Family) Primary Care Physician STEVE LU MEDICAL STUDENT Jan 11, 2019 08:13 JEANCARLOS HERNANDEZ MD Jan 11, 2019 10:13
[2019-01-11 08:40] LABS: ALANINE AMINOTRANSFERASE 19 U/L (0-55); ALBUMIN 4.1 GM/DL (3.2-4.5); ALKALINE PHOSPHATASE 73 U/L (40-136); BILIRUBIN,TOTAL 0.4 MG/DL (0.1-1.0); BUN/CREATININE RATIO 15; CALCIUM 8.9 MG/DL (8.5-10.1); CARBON DIOXIDE 20 MMOL/L (21-32); CHLORIDE 112 MMOL/L (98-107); CREATININE SERUM 0.79 MG/DL (0.60-1.30); GFR ESTIMATED > 60; GLUCOSE 113 MG/DL (70-105); LIPASE 16 U/L (8-78); POTASSIUM 3.3 MMOL/L (3.6-5.0); SODIUM 141 MMOL/L (135-145); TOTAL PROTEIN 7.2 GM/DL (6.4-8.2)
--- NOTE | 2019-01-11 08:45 | NUR ---
pt resting in bed after morphine and toradol given.
--- NOTE | 2019-01-11 08:59 | Diagnostic Imaging Report ---
PROCEDURE: US Gallbladder. TECHNIQUE: Multiple real-time grayscale images were obtained over the right upper quadrant in various projections. INDICATION: Pain FINDINGS: There are gallstones present. The gallbladder wall not pathologically thickened. No pericholecystic fluid or edema. Lifestyle Consultant reports a positive Macedo's sign. The intrahepatic biliary ducts nondilated. The common bile duct was 5 mm with no visualized stone. The right kidney shows mild prominence of the renal pelvis but no calyceal dilatation or fortino hydronephrosis. No visualized stone. IMPRESSION: Tender gallbladder with multiple gallstones. Prominent gallbladder measures just less than 10 cm in length by about 4 cm in width. Findings are equivocal for cholecystitis. If the clinical diagnosis is in doubt consider nuclear medicine hepatobiliary scanning to confirm or refute cystic duct patency. No bile duct dilatation. No ascites. Dictated by: Dictated on workstation # [id number]
[2019-01-11] MEDS ORDERED: LACTATED RINGERS 1,000 ML IV ONE (09:47)
[2019-01-11] MEDS ORDERED: fentaNYL INJECTION 100 MCG/2 ML AMP IVP STA (09:47)
[2019-01-11 09:53] LABS: BILIRUBIN,URINE NEGATIVE (NEGATIVE); CLARITY,URINE CLEAR; COLOR,URINE YELLOW; GLUCOSE, URINE (UA) NEGATIVE (NEGATIVE); KETONES,URINE 1+ (NEGATIVE); LEUKOCYTE ESTERASE ,URINE 2+ (NEGATIVE); NITRITE,URINE NEGATIVE (NEGATIVE); PH,URINE 6 (5-9); PROTEIN,URINE 2+ (NEGATIVE); UROBILINOGEN,URINE NORMAL (NORMAL)
[2019-01-11 10:04] LABS: BACTERIA,URINE LARGE /HPF; SQUAMOUS EPITHELIAL CELL,UR >50 /HPF
--- NOTE | 2019-01-11 10:12 | NUR ---
Dr. Ge to room 5. language line called.
--- NOTE | 2019-01-11 10:15 | NUR ---
fentanyl helped relieve pain, now reports 12/25
--- OUTSIDE RECORDS SUMMARY | 2019-01-11 10:33 | XMS REPORT | Continuity of Care Document ---
[...] Procedures Code Description [place] [address] THERAPUTIC INJ SQ/IM 05/24/2012 [id number] DEPO-PROVERA INJ 150 MG 05/24/2012 14776 URINE TEST (IN-HOUSE) 05/24/2012 Results There is no data. Encounters ACCT No. Visit Date/Time Discharge Status Pt. Type Provider Facility Loc./Unit Complaint [id number] 05/24/2012 11:30:00 05/24/2012 23:59:59 CLS Outpatient [id number] 05/17/2011 09:50:00 05/17/2011 23:59:59 [place] [id number] 02/21/2018 18:20:00 02/21/2018 23:59:59 CLS Outpatient PORTER MERRLIL APRN [facility]
--- NOTE | 2019-01-11 10:35 | Consultation (Surgery) ---
History of Present Illness History of Present Illness Patient Consulted On(reema/time) 01/11/19 10:30 Time Seen by Provider: 10:03 History of Present Illness Surgery asked to consult regarding RUQ pain. HPI per ED: Pt presents to ED this morning c/o sharp abdominal pain and vomiting that started an hour ago. She notes that she has a two year history of bouts of pain just like this. She thinks this may be related to her history of gallstones. Pt rates her pain as a 10/10 and states that usually morphine helps relieve the pain. She also endorses right sided, low back pain that radiates into her leg, causing tingling and making it difficult to stand. Pt denies food trigger this morning and denies fever, diarrhea, constipation, or urinary urgency. Pt denies ever having surgical consultation regarding possible cholecystectomy. She sees [facility] for her healthcare. LMP was 01/01/19. Timing/Duration: 1 Hour Severity/Quality: Severe, Sharp Location: RUQ, RLQ Radiation: Groin Pt states this is the worst pain she has ever had and the pain medicines don't last long enough. States she had chicken tostadas last night (baked chicken). Allergies and Home Medications Allergies Coded Allergies: No Known Drug Allergies (Verified , 03/27/07) Home Medications Citalopram Hydrobromide 40 Mg Tablet, 1 EACH PO DAILY, (Reported) Ferrous Sulfate 325 Mg Tablet, 325 MG PO DAILY Prescribed by: AMBROCIO GARCIA on 06/06/12 0245 Gabapentin 100 Mg Cap, 100 MG PO TID Prescribed by: AMBROCIO GARCIA on 06/06/12 0252 Vits W-Ca,Fe,Fa(<1MG) 1 Each Tablet, 1 EACH PO DAILY, (Reported) Patient Home Medication List Home Medication List Reviewed: Yes Past Nnfgzoz-Rwhtyo-Ddstlf Hx Patient Social History Alcohol Use: Denies Use Recreational Drug Use: No Smoking Status: Never a Smoker 2nd Hand Smoke Exposure: No Recent Foreign Travel: No Contact w/Someone Who Travel: No Recent Infectious Disease Expo: No Recent Hopitalizations: Yes (C-SECTIONS) Seasonal Allergies Seasonal Allergies: No Surgeries History of Surgeries: Yes Surgeries: Section (x3) Respiratory History of Respiratory Disorde: No Cardiovascular History of Cardiac Disorders: No Neurological History of Neurological Disord: No Reproductive System : No Hx Reproductive Disorders: No Genitourinary History of Genitourinary Disor: No Gastrointestinal History of Gastrointestinal Di: Yes (gallstones ) Gastrointestinal Disorders: Gall Bladder Disease (gallstones) Musculoskeletal History of Musculoskeletal Dis: No Endocrine History of Endocrine Disorders: No HEENT History of HEENT Disorders: No Cancer History of Cancer: No Psychosocial History of Psychiatric Problem: No Behavioral Health Disorders: Depression Integumentary History of Skin or Integumenta: No Blood Transfusions History of Blood Disorders: No Family Medical History Significant Family History: Hypertension (Father), Other Conditions/Hx (Mother has thyroid problems) Review of Systems-General Constitutional: No chills; malaise, weakness EENTM: No blurred vision, No double vision, No mouth pain, No mouth swelling, No epistaxis Respiratory: No cough, No dyspnea on exertion, No hemoptysis Cardiovascular: No chest pain, No edema, No palpitations Gastrointestinal: RUQ; No jaundice; nausea, vomiting Genitourinary: No dysuria, No frequency, No hematuria Musculoskeletal: No joint pain, No joint swelling, No muscle stiffness Skin: No change in color, No change in hair/nails Psychiatric/Neurological: Denies Anxiety; Depressed; Denies Seizure, Denies Tremors Other pt denies any abnormal bruising or bleeding. no heat or cold intolerance Physical Exam-General Problems Physical Exam Vital Signs Vital Signs - First Documented 01/11/19 07:44 Temp 97.1 Pulse 69 Resp 16 B/P (MAP) 130/74 (92) Pulse Ox 100 O2 Delivery Room Air Capillary Refill : Less Than 3 Seconds General Appearance: WD/WN, moderate distress Eyes: Bilateral Eye PERRL, Bilateral Eye EOMI HEENT: pharynx normal; No scleral icterus (R), No scleral icterus (L) Neck: non-tender, full range of motion, supple, normal inspection Respiratory: chest non-tender, lungs clear, normal breath sounds, no respiratory distress, no accessory muscle use Cardiovascular: regular rate, rhythm, no murmur Gastrointestinal: normal bowel sounds, no organomegaly, guarding (voluntary with deep palpation), tenderness (diffuse but more RUQ) Back: normal inspection, no CVA tenderness Extremities: normal range of motion, non-tender, normal inspection, no pedal edema, no calf tenderness Neurologic/Psychiatric: meat dresser II-XII nml as tested, no motor/sensory deficits, alert, normal mood/affect, oriented x 3 Skin: normal color, warm/dry Lymphatic: no adenopathy (neck, axilla or groin) Data Review Labs Laboratory Tests 01/11/19 07:52: White Blood Count 4.6, Red Blood Count 4.46, Hemoglobin 8.6L, Hematocrit 29L, Mean Corpuscular Volume 65L, Mean Corpuscular Hemoglobin 19L, Mean Corpuscular Hemoglobin Concent 30L, Red Cell Distribution Width 18.1H, Platelet Count 330, Mean Platelet Volume 11.3H, Neutrophils (%) (Auto) 59, Lymphocytes (%) (Auto) 30, Monocytes (%) (Auto) 7, Eosinophils (%) (Auto) 3, Basophils (%) (Auto) 1, Neutrophils # (Auto) 2.7, Lymphocytes # (Auto) 1.4, Monocytes # (Auto) 0.3, Eosinophils # (Auto) 0.2, Basophils # (Auto) 0.0, Sodium Level 141, Potassium Level 3.3L, Chloride Level 112H, Carbon Dioxide Level 20L, Anion Gap 9, Blood Urea Nitrogen 12, Creatinine 0.79, Estimat Glomerular Filtration Rate > 60, BUN/Creatinine Ratio 15, Glucose Level 113H, Calcium Level 8.9, Corrected Calcium 8.8, Total Bilirubin 0.4, Aspartate Amino Transf (AST/SGOT) 17, Alanine Aminotransferase (ALT/SGPT) 19, Alkaline Phosphatase 73, C-Reactive Protein High Sensitivity 0.06, Total Protein 7.2, Albumin 4.1, Lipase 16 01/11/19 09:42: Urine Color YELLOW, Urine Clarity CLEAR, Urine pH 6, Urine Specific [place] 1.020, Urine Protein 2+H, Urine Glucose (UA) NEGATIVE, Urine Ketones 1+H, Urine Nitrite NEGATIVE, Urine Bilirubin NEGATIVE, Urine Urobilinogen NORMAL, Urine Leukocyte Esterase 2+H, Urine RBC (Auto) 3+H, Urine RBC 5-10H, Urine WBC 10-25H, Urine Squamous Epithelial Cells >50H, Urine Crystals NONE, Urine Bacteria LARGEH , Urine Casts NONE, Urine Mucus MODERATEH, Urine Culture Indicated YES Radiology Date of Exam:01/11/19 US GALLBLADDER [id number] PROCEDURE: US Gallbladder. TECHNIQUE: Multiple real-time grayscale images were obtained over the right upper quadrant in various projections. INDICATION: Pain FINDINGS: There are gallstones present. The gallbladder wall not pathologically thickened. No pericholecystic fluid or edema. Barrel Lathe Operator Inside reports a positive Macedo's sign. The intrahepatic biliary ducts nondilated. The common bile duct was 5 mm with no visualized stone. The right kidney shows mild prominence of the renal pelvis but no calyceal dilatation or fortino hydronephrosis. No visualized stone. IMPRESSION: Tender gallbladder with multiple gallstones. Prominent gallbladder measures just less than 10 cm in length by about 4 cm in width. Findings are equivocal for cholecystitis. If the clinical diagnosis is in doubt consider nuclear medicine hepatobiliary scanning to confirm or refute cystic duct patency. No bile duct dilatation. No ascites. Dictated on workstation # [id number] Dict: 01/11/19 0855 Trans: 01/11/19 0858 [facility] [id number] Interpreted by: JONES CARDONA Electronically signed by: Assessment/Plan Assessment/Plan Assessment/Plan Acute Cholelithiasis with Cholecystitis Anemia Plan is to take pt to the OR as soon as it is available to perform Lap Gwendolyn with IOC and possible open. Pt will get IV fluids, pain control, anti-emetics, IV ABX registered occupational therapist to OR, NPO and will get consent. Discussed the procedure with pt; risks and complications not limited to pain, bleeding, infection, scar, damage to bowel or bile duct and need for further procedure. All questions answered to her satisfaction. All of this was obtained using the Language Line phytochemistry professor. CIARA LIM DO Jan 11, 2019 10:35
[2019-01-11] MEDS ORDERED: ONDANSETRON 4 MG/2 ML (SDV) Z0FRAN ONE (10:58)
[2019-01-11] MEDS ORDERED: proPOfol 200 MG/20 ML (DIPRIVAN) VIAL IV ONE ×2 (10:58→12:53)
[2019-01-11] MEDS ORDERED: SEVOFLURANE (ULTANE) 15 ML INHAL SOLN ONE ×5 (10:58→12:55)
[2019-01-11] MEDS ORDERED: LIDOCAINE PF 2% 5 ML (XYLOCAINE) VIAL ONE ×2 (10:58→12:53)
[2019-01-11] MEDS ORDERED: fentaNYL INJECTION 100 MCG/2 ML AMP ONE (10:58)
[2019-01-11] MEDS ORDERED: SUCCINYLCHOLINE INJ 100 MG/5 ML SYR ONE ×2 (10:58→12:54)
[2019-01-11] MEDS ORDERED: MIDAZOLAM 2 MG/2 ML (VERSED) VIAL ONE (10:59)
[2019-01-11] MEDS ORDERED: BUP/EPI 0.5% 1:200,000 (SENSORCAINE) 30 ML VIAL ONE (11:41)
[2019-01-11] MEDS ORDERED: IOPAMIDOL 61% 30 ML (ISOVUE 300) VIAL IV ONE (11:41)
[2019-01-11] MEDS: LACTATED RINGERS 1,000 ML IV PRN ×2 (11:55→13:47)
[2019-01-11] MEDS ORDERED: DEXAMETHASONE 10 MG/ML (DECADRON) 1 ML VIAL ONE (12:06)
[2019-01-11] MEDS ORDERED: METOCLOPRAMIDE INJ 10 MG/2 ML (REGLAN) ONE (12:06)
[2019-01-11] MEDS ORDERED: ceFAZolin INJECTION 2,000 MG ONE (12:13)
[2019-01-11] MEDS ORDERED: HYDROmorphone 2 MG/ML VIAL (DILAUDID) ONE (12:22)
[2019-01-11] MEDS ORDERED: ceFAZolin INJECTION 1,000 MG VIAL IV ONE (12:30)
[2019-01-11] MEDS ORDERED: ROCURONIUM 10 MG/ML 5 ML SYRINGE IV ONE (12:54)
[2019-01-11] MEDS ORDERED: GLYCOPYRROLATE 0.2 MG/ML (ROBINUL) 2 ML VIAL ONE (13:01)
[2019-01-11] MEDS ORDERED: NEOSTIGMINE 1 MG/ML 5 ML SYRINGE ONE (13:01)
[2019-01-11] MEDS ORDERED: KETOROLAC 30 MG/ML VIAL ONE (13:22)
--- NOTE | 2019-01-11 13:25 | Progress Note-Post Operative ---
Post-Operative Progess Note Surgeon (s)/Milk Vendor (s) Surgeon CIARA LIM DO Milk Vendor: ZEINAB Pre-Operative Diagnosis Acute Viviana/viviana, Anemia Post-Operative Diagnosis same Procedure & Operative Findings Date of Procedure 01/11/19 Procedure Performed/Findings Lap viviana with IOC Anesthesia Type GET Estimated Blood Loss Estimated blood loss (mL): less than 20ml Specimens/Packing Specimens Removed GB and contents CIARA LIM DO Jan 11, 2019 13:25
[2019-01-11] MEDS ORDERED: ACHD5005 PO (13:26)
--- NOTE | 2019-01-11 13:27 | Discharge Inst-Surgical ---
Discharge Inst-Surgical Depart Medication/Instructions New, Converted or Re-Newed RX: RX Given to Pt/Family Patient Instructions Follow up Appt: Make appointment for 1 week. [phone] Instructions: No lifting greater than 20 pounds. No strenuous activity. May shower in 24 hours, no tub bath or soaking. Use incentive spirometer at home as directed. No Smoking Skin/Wound Care: May remove bandages in am. You need to leave the Dermabond on incision it will fall off on it's own. Symptoms to Report: Appetite Changes, Extremity Discoloration, Numbness/Tingling, Swelling Increased, Bleeding Excessive, Eyesight Changes, Pain Increased, Urine Color Change, Constipation(Persistent), Fever over 101 degree F, Pain/Pressure in chest, Urinating Difficulty, Cough Up/Vomit Blood, Heart Beat Irreg/Pounding, Pain/Pressure in jaw, Cramps in feet or legs, Lightheadedness, Pain/Pressure in shoulder, Diarrhea(Persistent), Memory Changes Suddenly, Questions/Concerns, Weight gain consecutive days, Dizziness/Fainting, Nausea/Vomiting, Shortness of Breath, Weight gain over 2 pounds If questions or concerns contact your physician Or seek help at emergency department. Activity Activity as Tolerated: Yes Activity Instructions: Avoid Stress to Incision Driving Instructions: No Driving/Refer to Diet Discharge Diet: Avoid Fatty Foods, Low Fat/Low Cholesterol Diet After 24 Hours: Clear Liquid if Nauseous If Any Problems/Questions/Issu: Contact Your Physician, Go to Emergency Room Skin/Wound Care Infection Signs and Symptoms: Increased Redness, Foul Odor of Wound, Increased Drainage, Skin Itchy or Has a Rash, Increased Swelling, Temperature Above 101 F Wound Care Comment: heating pad to shoulder or neck tonight Bathing Instructions: Shower Stitches/Sera/Dermabond Dis: Dermabond Ice Pack: Ice On and Off Site CIARA LIM DO Jan 11, 2019 13:27
[2019-01-11] MEDS ORDERED: HYDROmorphone 2 MG/ML VIAL (DILAUDID) IV ONE (13:45)
[2019-01-11] MEDS ORDERED: ONDANSETRON 4 MG/2 ML (SDV) Z0FRAN IVP PRN (13:45)
--- NOTE | 2019-01-11 14:39 | Anesthesia-General Post-Op ---
General Patient Condition Mental Status/LOC: Same as Preop Cardiovascular: Satisfactory Nausea/Vomiting: Absent Respiratory: Satisfactory Pain: Controlled Complications: Absent Post Op Complications Complications None Follow Up Care/Instructions Patient Instructions None needed. Anesthesia/Patient Condition Patient Condition Patient is doing well, no complaints, stable vital signs, no apparent adverse anesthesia problems. No complications reported per nursing. MATILDE LYNN CRNA Jan 11, 2019 14:39
--- NOTE | 2019-01-11 17:16 | OPERATIVE REPORT ---
DATE OF SERVICE: PREOPERATIVE DIAGNOSES: Acute cholecystitis, cholelithiasis as well as anemia. POSTOPERATIVE DIAGNOSES: Acute cholecystitis, cholelithiasis as well as anemia, enlarged uterus, hydrops of the gallbladder. SURGEON: Jamar Ge DO TACK PULLER: Abdoul Craig DO. ANESTHESIA: General endotracheal tube. SPECIMEN: Gallbladder and contents. BLOOD LOSS: Less than 20 mL. FLUIDS: Per anesthesia. POSTOPERATIVE CONDITION: Stable. INDICATION FOR PROCEDURE: The patient is a 43-year-old female who came in with severe right upper quadrant abdominal pain and had ultrasound, which showed stones and a questionable cholecystitis. FINDINGS: The patient had pretty severe adhesions to the gallbladder. She also had hydrops of the gallbladder and the gallbladder was very hard to grasp. It looked like it definitely an acute cholecystitis with cholelithiasis as well as hydrops. PROCEDURE NOTE: After informed consent was obtained, the patient was brought to the operating room, placed on the table in supine position. She was sterilely prepped and draped in normal fashion. Local lidocaine was used to infiltrate the skin above the umbilicus. I made the incision with #11 blade, carried down through the skin into subcutaneous tissue, then deepened down to subcutaneous tissue with Bovie electrocautery down to the fascia. Fascia incised with Bovie electrocautery, bluntly entered the abdomen, swept the finger around, placed 0 Vicryl [id number] suture, then placed 11 mm trocar port under direct visualization, created pneumoperitoneum and then placed 3 more ports in normal fashion using local lidocaine, 11 blade for stab incision and Versed system, all done under direct visualization, one subxiphoid and two in the right upper quadrant. The patient was then placed in reverse Trendelenburg and rotated left. Upon entering, noted a lot of adhesions to the liver and the gallbladder, had to carefully start taking these down, peeling them off, to be able to peel off the omentum off of the liver and then start peeling this down off the gallbladder. This is definitely looked like an acute cholecystitis, had taken pictures down in the pelvis. She may have had a small left inguinal hernia indirect and she had very enlarged uterus, picture was taken. Finally able to grasp the gallbladder at the fundus and taken in superior direction, continued taking down the adhesions, took a while to take these adhesions down. The gallbladder was very distended and enlarged, able to finally take the gallbladder in superior direction, grasp down to Evelio's pouch and start dissecting out cystic duct and cystic artery. Again, this took a while, careful dissection with Bovie electrocautery as well as blunt dissection down using the suction cooler room worker for some hydrodissection, finally able to get around the cystic duct and the cystic artery, placed one clip distally on the cystic duct and one distally and one proximally on the cystic artery. Cut the cystic duct mcc through Metzenbaum scissors. Placed a cholangiogram catheter and shot a cholangiogram. Good spillage of dye down the cystic duct and the common bile duct and then up into the common hepatic and right and left hepatic ducts; was starting to go into the pancreatic duct. At this point, then removed the cholangiogram catheter, placed 2 clips proximally on the cystic duct and cut the cystic duct and the cystic artery with Metzenbaum scissors. While cutting the cystic duct, it ran into posterior cystic artery, able to clip this and stopped the bleeding, but it bled for a little bit, hence roughly just under 20 mL of blood loss, although this may be a high estimation. At this point, then started taking the gallbladder from bed of liver. There was a lot of edema in the gallbladder wall, so took a long time to finally get it off and actually get into the gallbladder a little bit and had some spillage of clear liquid, so this was hydrops of the gallbladder. Finally, able to remove the gallbladder completely from bed of liver. Placed the bag in the abdomen, placed the gallbladder in the bag and then removed this through the supraumbilical incision. Placed the port back in the abdomen, copiously irrigated with normal saline, suctioned all this out. Hemostasis was obtained of the bed of liver with L-hook cautery. Looked around, no other obvious pathology. At this point, then placed the patient supine and removed all ports under direct visualization, allowed pneumoperitoneum to escape as well as suctioned out. Closed the supraumbilical incision, closing the fascia with 0 Vicryl [id number]-[id number] suture previously placed, copiously irrigated incisions with normal saline, closed the 3 small 5 mm incisions with a single interrupted 4-0 undyed Monocryl subcuticular stitch, closed supraumbilical incision with 3 interrupted 4-0 undyed Monocryl subcuticular stitches. Area was cleaned and dried. Dermabond placed as well as Band-Aids and the patient was then transferred to recovery room in stable condition. Sponge, instrument and needle count correct at the end of the case. Dr. Craig assisted in this case helping to make incisions, close incisions, identify anatomy and hold the anatomy away. Job ID: [id number] DocumentID: [id number] Dictated Date: 01/11/2019 15:56:01 Turkey Roll Maker Date: 01/11/2019 17:15:20 Dictated By: DO TAYLOR WILLAMS
--- NOTE | 2019-01-11 18:17 | Diagnostic Imaging Report ---
INDICATION: Fluoroscopy for intraoperative cholangiogram. EXAMINATION: Fluoroscopy was provided in the OR for intraoperative cholangiogram. 9 seconds of fluoroscopy was utilized. FINDINGS: Images demonstrate contrast injected via the cystic duct remnant. Intrahepatic and extrahepatic bile ducts are normal caliber. No filling defects are seen. Contrast extends into the duodenum. IMPRESSION: Fluoroscopy for intraoperative angiogram. Dictated by: Dictated on workstation # [id number]
== END 2019-01-11 16:45 | disposition home or self-care (01) ==
LOC: EDUNIT# 07:34 → ER 07:35 → SDC 10:26
PROVIDERS: ATTEND Surgery
DX: K80.00 Calculus of gallbladder with acute cholecystitis without obstruction (principal); K82.1 Hydrops of gallbladder; D64.9 Anemia, unspecified; N85.2 Hypertrophy of uterus; R82.90 Unspecified abnormal findings in urine
CPT/HCPCS: 36415; 76705; 80053; 81000; 83690; 84703; 85025; 86141; 87081; 87088; 96361; 96374; 96375